=== PATIENT | male | born 1970 | race Caucasian/White ===

== ENCOUNTER 2018-06-04 09:31 | Emergency (ER) | payer MEDICARE, MEDICAID ==
[2018-06-04] MEDS ORDERED: NS 0.9% 1000 ML** 1,000 ML IV ONE (09:49)
[2018-06-04] MEDS ORDERED: Ketorolac INJ* 30 MG/ML 1 ML VIAL IV PUSH ONE (09:49)
[2018-06-04 10:31] LABS: ABS Basophils 0.1 10^3/ul (0-0.2); ABS Eosinophils 0.2 10^3/ul (0-0.6); ABS Lymphocytes 2.2 10^3/ul (1.0-4.8); ABS Monocytes 1.2 10^3/ul (0-0.8); ABS Neutrophils 8.9 10^3/ul (1.5-7.7); ABS Nucleated RBC 0 10^3/ul; Eosinophil % 1.9 %; Hematocrit 45 % (36-46); Lymphocyte % 17.7 %; Mean Corpuscular HGB Conc 33 g/dL (31-36); Mean Corpuscular Hemoglobin 30 pg (27-31); Mean Corpuscular Volume 89 fL (80-94); Mean Platelet Volume 8.7 fL (7.4-10.4); Nucleated Red Blood Cells % 0; Platelet Count 232 10^3/uL (150-450); Red Blood Count 5.04 10^6 /uL (4.18-5.48); Red Cell Distribution Width 14 % (10.5-15); White Blood Count 12.6 10^3/uL (3.5-10.8)
[2018-06-04 10:34] LABS: INR 0.85 (0.77-1.02)
[2018-06-04 10:52] LABS: Albumin 4.1 g/dL (3.2-5.2); Albumin/Globulin Ratio 1.7 (1-3); BUN/Creatinine Ratio 11.8 (8-20); C Reactive Protein 8.52 mg/L (<8.01); Calcium 8.7 mg/dL (8.6-10.3); EGFR African American 131.4 (>60); EGFR Non-African American 108.6 (>60); Globulin 2.4 g/dL (2-4); Magnesium 1.8 mg/dL (1.9-2.7); Potassium 4.3 mmol/L (3.5-5.0); Total Bilirubin 0.2 mg/dL (0.2-1.0); Total Protein 6.5 g/dL (6.4-8.9)
[2018-06-04 11:11] LABS: Urine Appearance Clear; Urine Bacteria Absent (Absent); Urine Bilirubin Negative (Negative); Urine Blood 1+ (Negative); Urine Color Yellow; Urine Glucose Negative (Negative); Urine Ketones Trace (Negative); Urine Nitrite Negative (Negative); Urine Protein Negative (Negative); Urine Red Blood Cell 1+(3-5/hpf) (Absent); Urine Specific Gravity 1.016 (1.010-1.030); Urine Urobilinogen Negative (Negative); Urine White Blood Cell 1+(6-10/hpf) (Absent)
[2018-06-04 12:28] VITALS: BP 146/77
--- NOTE | 2018-06-04 12:41 | ED ---
Abdominal Pain/Male - HPI Summary HPI Summary: Patient's a 48-year-old male presenting to the ED with left-sided flank pain radiating into the left groin. Symptoms have been present for approximately 2 days. He also endorses a history of a left inguinal hernia with repair back in 2004 which she states this feels similar. Also a history of kidney infection many years ago. He denies any urinary symptoms, gross hematuria. He does endorse some bright red blood per rectum with bowel movements, however has been worked up for this at [place] and has been diagnosed with polyps and hemorrhoids. He denies any weakness, fatigue, nausea, vomiting, diarrhea, constipation. He is able to eat and drink okay. He denies any abdominal pain. Denies any CP or SOB. He has not taken any medication at home for relief. Patient is a heavy smoker and drinks alcohol. - History of Current Complaint Chief Complaint: EDFlankPain Stated Complaint: SEVERE PAIN IN LEFT SIDE/FLANK AREA PER PT Time Seen by Provider: 06/04/18 09:48 Hx Obtained From: Patient Onset/Duration: Sudden Onset Timing: Constant Severity Initially: Moderate Severity Currently: Moderate Pain Intensity: 4 Pain Scale Used: 0-10 Numeric Location: Flank Radiates: Yes Radiates to: Inguinal Character: Cramping Aggravating Factor(s): Nothing Alleviating Factor(s): Nothing Associated Signs And Symptoms: Positive: Negative - Risk Factors Testicular Torsion: Negative Cardiac Risk Factors: Negative - Allergies/Home Medications Allergies/Adverse Reactions: Allergies Allergy/AdvReac Type Severity Reaction Status Date / Time BEES Allergy Severe Swelling Uncoded 06/04/18 09:38 PMH/Surg Hx/FS Hx/Imm Hx Previously Healthy: Yes Endocrine/Hematology History: Denies: Hx Anticoagulant Therapy, Hx Diabetes, Hx Thyroid Disease Cardiovascular History: Reports: Hx Coronary Artery Disease - POSSIBLE, Other Cardiovascular Problems/Disorders - NEG ECHO A FEW YEARS BACK Denies: Hx Congestive Heart Failure, Hx Deep Vein Thrombosis, Hx Hypertension , Hx Myocardial Infarction, Hx Pacemaker/ICD Respiratory History: Denies: Hx Asthma - as a child, Hx Chronic Obstructive Pulmonary Disease ( COPD), Hx Lung Cancer, Hx Pneumonia, Hx Pulmonary Embolism, Other Respiratory Problems/Disorders GI History: Reports: Other GI Disorders - DIVERTICULITIS Denies: Hx Gall Bladder Disease, Hx Gastrointestinal Bleed, Hx Ulcer, Hx Urosepsis History: Reports: Hx Kidney Stones - 2013, Other Problems/Disorders - ENLARGED PROSTATE Denies: Hx Renal Disease Musculoskeletal History: Reports: Hx Arthritis - NECK, Hx Tendonitis - NECK AND SHOULDER, Other Musculoskeletal History - FIBROMYALGIA Denies: Hx Scoliosis Sensory History: Reports: Hx Contacts or Glasses - RADING Denies: Hx Hearing Aid Opthamlomology History: Reports: Hx Contacts or Glasses - RADING Neurological History: Reports: Hx Migraine Denies: Hx Dementia, Hx Headaches, Hx Seizures, Hx Transient Ischemic Attacks (TIA) Psychiatric History: Denies: Hx Anxiety, Hx Depression, Hx Panic Disorder, Hx Schizophrenia, Hx Bipolar Disorder - Cancer History Cancer Type, Location and Year: ELEVATED PSA - Surgical History Surgery Procedure, Year, and Place: 2004 INGUINAL HERNIA. 2006 L5-S1 LAMINECTOMY SURGERY. TONSILS. 04/2015 CSP C4-C5 - FUSIONS Hx Anesthesia Reactions: No - Immunization History Hx Pertussis Vaccination: No Immunizations Up to Date: Yes Infectious Disease History: No Infectious Disease History: Denies: Hx Hepatitis, Hx Human Immunodeficiency Virus (HIV), Traveled Outside the [place] in Last 30 Days - Family History Known Family History: Positive: Hypertension Negative: Cardiac Disease, Diabetes - Social History Occupation: Employed Full-time Lives: With Family Alcohol Use: None Hx Substance Use: Yes Substance Use Type: Reports: Marijuana Hx Tobacco Use: Yes Smoking Status (MU): Heavy Every Day Tobacco Smoker Type: Cigarettes Amount Used/How Often: 2 PKS/DAY Have You Smoked in the Last Year: Yes Review of Systems Constitutional: Negative Negative: Fever, Chills, Fatigue, Skin Diaphoresis Negative: Palpitations, Chest Pain Negative: Shortness Of Breath, Cough Negative: Abdominal Pain, Nausea Genitourinary: Negative Positive: no symptoms reported, see HPI, flank pain. Negative: dysuria, frequency, hematuria, incontinence, pain Negative: Arthralgia, Myalgia Skin: Negative All Other Systems Reviewed And Are Negative: Yes Physical Exam Triage Information Reviewed: Yes Vital Signs On Initial Exam: Initial Vitals Temp Pulse Resp BP Pulse Ox 98.7 F 84 20 115/66 100 06/04/18 09:34 06/04/18 09:34 06/04/18 09:34 06/04/18 09:34 06/04/18 09:34 Vital Signs Reviewed: Yes Appearance: Positive: Well-Appearing, Well-Nourished Skin: Positive: Warm, Skin Color Reflects Adequate Perfusion Head/Face: Positive: Normal Head/Face Inspection Eyes: Positive: EOMI, GEOVANNA, Conjunctiva Clear Neck: Positive: Supple, No Lymphadenopathy Respiratory/Lung Sounds: Positive: Clear to Auscultation, Breath Sounds Present Abdomen Description: Positive: Nontender, Soft, CVA Tenderness (L), Other: - no evidence of inguinal hernia. Negative: CVA Tenderness (R), McBurney's Point Tenderness Bowel Sounds: Positive: Present Musculoskeletal: Positive: Normal, Strength/ROM Intact Neurological: Positive: Sensory/Motor Intact, Alert, Oriented to Person Place, Time Psychiatric: Positive: Normal, Affect/Mood Appropriate AVPU Assessment: Alert Diagnostics - Vital Signs Vital Signs Temp Pulse Resp BP Pulse Ox 06/04/18 12:27 98.1 F 70 16 146/77 99 06/04/18 11:01 70 98 06/04/18 10:59 71 102/68 99 06/04/18 10:11 76 100 06/04/18 09:43 79 128/91 99 06/04/18 09:42 83 99 06/04/18 09:34 98.7 F 84 20 115/66 100 - Laboratory Lab Results: Lab Results 06/04/18 06/04/18 06/04/18 Range/Units 10:13 10:16 10:16 WBC 12.6 H (3.5-10.8) 10^3/uL RBC 5.04 (4.18-5.48) 10^6 /uL Hgb 15.0 (14.0-18.0) g/dL Hct 45 (36-46) % MCV 89 (80-94) fL MCH 30 (27-31) pg MCHC 33 (31-36) g/dL RDW 14 (10.5-15) % Plt Count 232 (150-450) 10^3/uL MPV 8.7 (7.4-10.4) fL Neut % (Auto) 70.0 % Lymph % (Auto) 17.7 % Sanders % (Auto) 9.9 % Eos % (Auto) 1.9 % Baso % (Auto) 0.5 % Absolute Neuts (auto) 8.9 H (1.5-7.7) 10^3/ul Absolute Lymphs (auto) 2.2 (1.0-4.8) 10^3/ul Absolute Monos (auto) 1.2 H (0-0.8) 10^3/ul Absolute Eos (auto) 0.2 (0-0.6) 10^3/ul Absolute Basos (auto) 0.1 (0-0.2) 10^3/ul Absolute Nucleated RBC 0 10^3/ul Nucleated RBC % 0 INR (Anticoag Therapy) 0.85 (0.77-1.02) Sodium (135-145) mmol/L Potassium (3.5-5.0) mmol/L Chloride (101-111) mmol/L Carbon Dioxide (22-32) mmol/L Anion Gap (2-11) mmol/L BUN (6-24) mg/dL Creatinine (0.67-1.17) mg/dL Est GFR ( Amer) (>60) Est GFR (Non-Af Amer) (>60) BUN/Creatinine Ratio (8-20) Glucose (70-100) mg/dL Lactic Acid (0.5-2.0) mmol/L Calcium (8.6-10.3) mg/dL Magnesium (1.9-2.7) mg/dL Total Bilirubin (0.2-1.0) mg/dL AST (13-39) U/L ALT (7-52) U/L Alkaline Phosphatase (34-104) U/L C-Reactive Protein (<8.01) mg/L Total Protein (6.4-8.9) g/dL Albumin (3.2-5.2) g/dL Globulin (2-4) g/dL Albumin/Globulin Ratio (1-3) Lipase (11.0-82.0) U/L Urine Color Yellow Urine Appearance Clear Urine pH 5.0 (5-9) Ur Specific [place] 1.016 (1.010-1.030) Urine Protein Negative (Negative) Urine Ketones Trace A (Negative) Urine Blood 1+ A (Negative) Urine Nitrate Negative (Negative) Urine Bilirubin Negative (Negative) Urine Urobilinogen Negative (Negative) Ur Leukocyte Esterase 1+ A (Negative) Urine WBC (Auto) 1+(6-10/hpf) A (Absent) Urine RBC (Auto) 1+(3-5/hpf) A (Absent) Urine Bacteria Absent (Absent) Urine Glucose Negative (Negative) 06/04/18 06/04/18 Range/Units 10:16 10:16 WBC (3.5-10.8) 10^3/uL RBC (4.18-5.48) 10^6 /uL Hgb (14.0-18.0) g/dL Hct (36-46) % MCV (80-94) fL MCH (27-31) pg MCHC (31-36) g/dL RDW (10.5-15) % Plt Count (150-450) 10^3/uL MPV (7.4-10.4) fL Neut % (Auto) % Lymph % (Auto) % Sanders % (Auto) % Eos % (Auto) % Baso % (Auto) % Absolute Neuts (auto) (1.5-7.7) 10^3/ul Absolute Lymphs (auto) (1.0-4.8) 10^3/ul Absolute Monos (auto) (0-0.8) 10^3/ul Absolute Eos (auto) (0-0.6) 10^3/ul Absolute Basos (auto) (0-0.2) 10^3/ul Absolute Nucleated RBC 10^3/ul Nucleated RBC % INR (Anticoag Therapy) (0.77-1.02) Sodium 140 (135-145) mmol/L Potassium 4.3 (3.5-5.0) mmol/L Chloride 106 (101-111) mmol/L Carbon Dioxide 29 (22-32) mmol/L Anion Gap 5 (2-11) mmol/L BUN 9 (6-24) mg/dL Creatinine 0.76 (0.67-1.17) mg/dL Est GFR ( Amer) 131.4 (>60) Est GFR (Non-Af Amer) 108.6 (>60) BUN/Creatinine Ratio 11.8 (8-20) Glucose 100 (70-100) mg/dL Lactic Acid 0.9 (0.5-2.0) mmol/L Calcium 8.7 (8.6-10.3) mg/dL Magnesium 1.8 L (1.9-2.7) mg/dL Total Bilirubin 0.20 (0.2-1.0) mg/dL AST 16 (13-39) U/L ALT 12 (7-52) U/L Alkaline Phosphatase 85 (34-104) U/L C-Reactive Protein 8.52 H (<8.01) mg/L Total Protein 6.5 (6.4-8.9) g/dL Albumin 4.1 (3.2-5.2) g/dL Globulin 2.4 (2-4) g/dL Albumin/Globulin Ratio 1.7 (1-3) Lipase 10 L (11.0-82.0) U/L Urine Color Urine Appearance Urine pH (5-9) Ur Specific [place] (1.010-1.030) Urine Protein (Negative) Urine Ketones (Negative) Urine Blood (Negative) Urine Nitrate (Negative) Urine Bilirubin (Negative) Urine Urobilinogen (Negative) Ur Leukocyte Esterase (Negative) Urine WBC (Auto) (Absent) Urine RBC (Auto) (Absent) Urine Bacteria (Absent) Urine Glucose (Negative) Result Diagrams: 06/04/18 10:16 06/04/18 10:16 Lab Statement: Any lab studies that have been ordered have been reviewed, and results considered in the medical decision making process. Abdominal Pain Male Course/Dx - Course Course Of Treatment: During this patient's course of treatment, he is evaluated for left-sided flank pain. Patient is given Toradol and 1 L normal saline. Urine obtained which shows 1+ leuks, 1+ to CBC and 1+ RBC. CT abdomen and pelvis obtained which shows a small left-sided inguinal hernia, however no other acute pathologies including kidney stones or hydronephrosis. Patient feels improved after fluids and Toradol. He will be prescribed Bactrim 5 days for his possible UTI and we will await cultures. He is also given follow-ups to a urologist and surgery. He is okay for discharge at this time and continues to eat and drink okay. - Diagnoses Differential Diagnosis/HQI/PQRI: Renal Colic, Ureteral Stone, Urinary Tract Infection Provider Diagnoses: Left flank pain Discharge - Sign-Out/Discharge Documenting (check all that apply): Patient Departure Patient Received Moderate/Deep Sedation with Procedure: No - Discharge Plan Condition: Stable Disposition: HOME Prescriptions: Ketorolac TAB * [Toradol TAB *] 10 mg PO Q6H #16 tab Sulfamethox/Trimethoprim DS* [Bactrim DS 800/160 TAB*] 1 tab PO BID #10 tab Patient Education Materials: Urinary Tract Infection in Men (ED) Referrals: Abhinav Iverson MD [Medical Doctor] - Jitendra Loyola MD [Primary Care Provider] - Hay Le MD [Medical Doctor] - Additional Instructions: Please follow-up with your urologist, I have also given you a referral for our urologist Please also follow up with your PCP I discussed with you about your small left-sided inguinal hernia, you may follow up with surgery if this begins to bother you Bactrim twice daily 5 days Take Toradol 4 times daily 4 days for any pain Do not take any ibuprofen or other NSAIDs while taking this medication - Billing Disposition and Condition Condition: STABLE Disposition: Home
== END 2018-06-04 12:27 | disposition home or self-care (01) ==
LOC: ED 09:31
DX: R10.32 Left lower quadrant pain (principal); F17.210 Nicotine dependence, cigarettes, uncomplicated; K57.92 Diverticulitis of intestine, part unspecified, without perforation or abscess without bleeding; M79.7 Fibromyalgia
CPT/HCPCS: 36415; 74176; 80053; 81003; 81015; 83605; 83690; 83735; 85025; 85610; 86140; 87086; 96361; 96374; 99283; J1885

== ENCOUNTER 2018-06-14 20:21 | Emergency (ER) | payer OTHER, MEDICARE ==
[2018-06-14] MEDS ORDERED: oxyCODONE/Acetamin 5/325 MG* TAB PO ONE ×2 (20:59→21:00)
[2018-06-14] MEDS ORDERED: predniSONE TAB* 20 MG PO ONE (20:59)
[2018-06-14] MEDS ORDERED: Naproxen TAB* 250 MG PO ONE (20:59)
[2018-06-14] MEDS ORDERED: Lidocaine Patch REMOVE* 1 NOTE MISC SCH (21:00)
[2018-06-14] MEDS ORDERED: Lidocaine PATCH 5%* 1 PATCH TRANSDERM SCH (21:00)
--- NOTE | 2018-06-14 21:06 | ED ---
Back Pain - HPI Summary HPI Summary: This patient is a 48 year old M presenting to [facility] accompanied by a woman with a chief complaint of worsening chronic lower back pain radiating down his left leg since 2 weeks ago. The patient rates the pain 10/10 in severity. Symptoms aggravated by movement. Symptoms not alleviated by Hydrocodone. Patient reports pain with ambulation of left leg, difficulty sleeping, constipation, and lower abd pain. Patient denies fever. The patient came to [facility] about 2 weeks ago, where he was diagnosed with a UTI and given Bactrim and Hydrocodone. The patient was able to ambulate from his car to the ED. He has an appointment with Dr. Jaimes next week, who he hasnt seen since 2017. The patient says he cannot tell if there is numbness or tingling in the groin because of the back pain. He denies using IV drugs. The patient uses laxatives to try to help with the constipation. The patient has been taking 800mg Ibuprofen for the pain, which has not alleviated his symptoms. PMHX Hernia operation, back surgery. No PMHx diabetes. SHX tobacco use. RX Hydrocodone. - History of Current Complaint Chief Complaint: EDBackInjuryPain Stated Complaint: BACK AND LEG PAIN PER PT Time Seen by Provider: 06/14/18 20:46 Hx Obtained From: Patient Onset/Duration: Gradual Onset, Lasting Weeks, Still Present Timing: Constant Back Pain Location: Radiates To - left leg Severity Currently: Severe Pain Intensity: 10 Pain Scale Used: 0-10 Numeric Character: Sharp Aggravating Symptom(s): Movement, Walking Associated Signs And Symptoms: Positive: Pain with Weight Bearing - Allergies/Home Medications Allergies/Adverse Reactions: Allergies Allergy/AdvReac Type Severity Reaction Status Date / Time BEES Allergy Severe Swelling Uncoded 06/04/18 09:38 Home Medications: Home Medications Hydrocodone/Acetaminophen [Hydrocodone-Acetamin 5-325 mg] 1 tab PO Q4HR PRN 07/28 [History Confirmed 06/14/18] PMH/Surg Hx/FS Hx/Imm Hx Endocrine/Hematology History: Denies: Hx Anticoagulant Therapy, Hx Diabetes, Hx Thyroid Disease Cardiovascular History: Reports: Hx Coronary Artery Disease - POSSIBLE, Other Cardiovascular Problems/Disorders - NEG ECHO A FEW YEARS BACK Denies: Hx Congestive Heart Failure, Hx Deep Vein Thrombosis, Hx Hypertension , Hx Myocardial Infarction, Hx Pacemaker/ICD Respiratory History: Denies: Hx Asthma - as a child, Hx Chronic Obstructive Pulmonary Disease ( COPD), Hx Lung Cancer, Hx Pneumonia, Hx Pulmonary Embolism, Other Respiratory Problems/Disorders GI History: Reports: Other GI Disorders - DIVERTICULITIS Denies: Hx Gall Bladder Disease, Hx Gastrointestinal Bleed, Hx Ulcer, Hx Urosepsis History: Reports: Hx Kidney Stones - 2014, Other Problems/Disorders - ENLARGED PROSTATE Denies: Hx Renal Disease Musculoskeletal History: Reports: Hx Arthritis - NECK, Hx Tendonitis - NECK AND SHOULDER, Other Musculoskeletal History - FIBROMYALGIA Denies: Hx Scoliosis Sensory History: Reports: Hx Contacts or Glasses - RADING Opthamlomology History: Reports: Hx Contacts or Glasses - RADING Neurological History: Reports: Hx Migraine Denies: Hx Dementia, Hx Headaches, Hx Seizures, Hx Transient Ischemic Attacks (TIA) Psychiatric History: Denies: Hx Anxiety, Hx Depression, Hx Panic Disorder, Hx Schizophrenia, Hx Bipolar Disorder - Cancer History Cancer Type, Location and Year: ELEVATED PSA - Surgical History Surgery Procedure, Year, and Place: 2004 INGUINAL HERNIA. 2005 L5-S1 LAMINECTOMY SURGERY. TONSILS. 04/2015 CSP C4-C5 - FUSIONS Hx Anesthesia Reactions: No Infectious Disease History: No Infectious Disease History: Denies: Hx Hepatitis, Hx Human Immunodeficiency Virus (HIV), Traveled Outside the [place] in Last 30 Days - Family History Known Family History: Positive: Hypertension Negative: Cardiac Disease, Diabetes - Social History Alcohol Use: None Hx Substance Use: Yes Substance Use Type: Reports: Marijuana Hx Tobacco Use: Yes Smoking Status (MU): Heavy Every Day Tobacco Smoker Type: Cigarettes Amount Used/How Often: 2 PKS/DAY Have You Smoked in the Last Year: Yes Review of Systems Negative: Fever Positive: Abdominal Pain - lower, near groin, Other - constipation Positive: Myalgia - lower back, left leg Neurological: Other - difficulty sleeping All Other Systems Reviewed And Are Negative: Yes Physical Exam - Summary Physical Exam Summary: Constitutional: Well-developed, Well-nourished, Alert. Skin: Warm, Dry HENT: Normocephalic; Atraumatic Eyes: Conjunctiva normal Neck: Musculoskeletal ROM normal neck. Cardio: Rhythm regular, rate normal, Heart sounds normal; Intact distal pulses; The pedal pulses are 2+ and symmetric. Radial pulses are 2+ and symmetric. Pulmonary/Chest wall: Effort normal. Abd: Soft. Musculoskeletal: Straight leg raise is positive on the left. ROM limited by pain. No bony tenderness. Neuro: Alert, Oriented x3 Psych: Mood and affect Normal Triage Information Reviewed: Yes Vital Signs On Initial Exam: Initial Vitals Temp Pulse Resp BP Pulse Ox 98.4 F 111 20 136/86 99 06/14/18 20:22 06/14/18 20:22 06/14/18 20:22 06/14/18 20:22 06/14/18 20:22 Vital Signs Reviewed: Yes Diagnostics - Vital Signs Vital Signs Temp Pulse Resp BP Pulse Ox 06/14/18 20:22 98.4 F 111 20 136/86 99 - Laboratory Lab Statement: Any lab studies that have been ordered have been reviewed, and results considered in the medical decision making process. Back Pain Course/Dx - Course Course Of Treatment: This patient is a 48 year old M presenting to [facility] accompanied by a woman with a chief complaint of worsening chronic lower back pain radiating down his left leg since 2 weeks ago. The patient rates the pain 10/10 in severity. Symptoms aggravated by movement. Symptoms not alleviated by Hydrocodone. Patient reports pain with ambulation of left leg, difficulty sleeping, constipation, and lower abd pain. Patient denies fever. In the ED course the patient was given Lidocaine patch, Naproxen, Oxycodone, and Prednisone. No bowel or bladder dysfunction and no saddle anesthesia. I do not suspect cauda equine syndrome. All of his symptoms are indicative of left sciatica. Patient will be discharged with prescription for Lidocaine, Naproxen , Oxycodone, and Prednisone and follow up from Dr. Jaimes. The patient is agreeable with this plan. - Diagnoses Provider Diagnoses: Sciatica Discharge - Sign-Out/Discharge Documenting (check all that apply): Patient Departure - discharge Patient Received Moderate/Deep Sedation with Procedure: No - Discharge Plan Condition: Stable Disposition: HOME Prescriptions: Lidocaine PATCH 5%* [Lidoderm 5% Patch*] 1 patch TRANSDERM DAILY #14 patch Naproxen TAB* [Naprosyn 250 mg TAB*] 500 mg PO Q8H PRN #30 tab PRN Reason: Pain - Moderate To Severe oxyCODONE/Acetamin 5/325 MG* [Percocet 5/325 TAB*] 2 tab PO Q6H PRN #20 tab MDD 8 PRN Reason: Pain Scale 6-10 predniSONE TAB* [Deltasone TAB*] 50 mg PO DAILY #4 tab Patient Education Materials: Sciatica (ED) Referrals: Byron Jaimes MD [Medical Doctor] - 3 Days Additional Instructions: Please follow up with Dr. Jaimes on Sunday, as previously scheduled. - Attestation Statements Document Initiated by Scribe: Yes Documenting Scribe: Vinayak Giron Provider For Whom Scribe is Documenting (Include Credential): Chong Shah MD Scribe Attestation: IVinayak, scribed for Chong Shah MD on 06/14/18 at 2128. Status of Scribe Document: Ready
[2018-06-14] MEDS ORDERED: Lidocaine PATCH 5%* 1 PATCH ONE (21:07)
[2018-06-14 22:01] VITALS: BP 118/86
[2018-06-14] MEDS ORDERED: Lidocaine Patch REMOVE* 1 NOTE MISC PATCH OFF SCH (23:32)
== END 2018-06-14 21:59 | disposition home or self-care (01) ==
LOC: ED 20:21
DX: M54.32 Sciatica, left side (principal); F17.210 Nicotine dependence, cigarettes, uncomplicated; I25.10 Atherosclerotic heart disease of native coronary artery without angina pectoris; Z87.442 Personal history of urinary calculi; M79.7 Fibromyalgia
CPT/HCPCS: 99282; A9270-GY; J7512

== ENCOUNTER 2019-06-20 11:05 | Emergency (ER) | payer MEDICARE, MEDICAID ==
--- NOTE | 2019-06-20 11:17 | ED ---
GI/ HPI - HPI Summary HPI Summary: 49 y/o M with hx rectal bleeding, hemorrhoids, polyps, diverticulitis, inguinal hernia presenting to [facility] c/o intermittent rectal bleeding for 2 weeks. Lasted for 3 days last week. Lasted for 4 days this week. No rectal bleeding today. Patient reports seeing blood clots in his stools. He reports 4/10 left sided abdominal pain wrapping around to the left side of his back. No dizziness or light headedness. Was seen by his primary care provider today and given probiotic and another medication. He is followed by Dr. Gilman, GI at [place]. Last colonoscopy 3 years ago. He hasn't been able to have colonoscopy for this d /t the pandemic. Symptoms aggravated and alleviated by nothing. Medications reviewed. Not on anticoagulants. Allergies reviewed. Current smoker. - History of Current Complaint Chief Complaint: EDGIBleed Time Seen by Provider: 06/20/19 11:14 Stated Complaint: RECTAL BLEEDING PER PT Hx Obtained From: Patient Onset/Duration: Started Weeks Ago - 2, Still Present Timing: Intermittent Current Severity: Moderate Pain Intensity: 4 Aggravating Factor(s): Nothing Alleviating Factor(s): Nothing - Additional Pertinent History Primary Care Physician: [id number] - Allergy/Home Medications Allergies/Adverse Reactions: Allergies Allergy/AdvReac Type Severity Reaction Status Date / Time bee venom protein (honey bee) Allergy Severe Swelling Verified 06/14/18 23:33 Home Medications: Home Medications Cyclobenzaprine TAB* [Flexeril TAB*] 10 mg PO TID 03/25/12 [History Confirmed ] Pregabalin 25 mg CAP (*) [Lyrica CAP(*)] 150 mg PO TID 03/25/12 [History Confirmed 06/20/19] Acetaminophen TAB* [Tylenol TAB*] 325 mg PO Q4H PRN 06/20/19 [History Confirmed 06/20/19] Ascorbic Acid TAB* [Vitamin C TAB*] 500 mg PO DAILY 06/20/19 [History Confirmed 06/20/19] Meloxicam(NF) [Mobic(NF)] 15 mg PO DAILY 06/20/19 [History Confirmed 06/20/19] Multivitamins/Minerals TAB* [Theragran/minerals TAB*] 1 tab PO DAILY 06/20/19 [ History Confirmed 06/20/19] Pyridoxine TAB* [Vitamin B6 TAB*] 50 mg PO DAILY 06/20/19 [History Confirmed 12/29] Vitamin E CAP* 200 unit PO DAILY 06/20/19 [History Confirmed 06/20/19] PMH/Surg Hx/FS Hx/Imm Hx Endocrine/Hematology History: Denies: Hx Anticoagulant Therapy, Hx Diabetes, Hx Thyroid Disease Cardiovascular History: Reports: Hx Coronary Artery Disease - POSSIBLE, Other Cardiovascular Problems/Disorders - NEG ECHO A FEW YEARS BACK Denies: Hx Congestive Heart Failure, Hx Deep Vein Thrombosis, Hx Hypertension , Hx Myocardial Infarction, Hx Pacemaker/ICD Respiratory History: Denies: Hx Asthma - as a child, Hx Chronic Obstructive Pulmonary Disease ( COPD), Hx Pneumonia, Hx Pulmonary Embolism, Other Respiratory Problems/Disorders GI History: Reports: Other GI Disorders - DIVERTICULITIS Denies: Hx Gall Bladder Disease, Hx Ulcer History: Reports: Hx Kidney Stones - 2013, Other Problems/Disorders - ENLARGED PROSTATE Denies: Hx Renal Disease - DECREASED FROM UTI BUT OKAY AFTER ANTIBIOTICS NOW Musculoskeletal History: Reports: Hx Arthritis - NECK, Hx Tendonitis - NECK AND SHOULDER, Other Musculoskeletal History - FIBROMYALGIA Sensory History: Reports: Hx Contacts or Glasses - RADING Opthamlomology History: Reports: Hx Contacts or Glasses - RADING Neurological History: Reports: Hx Migraine Denies: Hx Headaches, Hx Seizures, Hx Transient Ischemic Attacks (TIA) Psychiatric History: Denies: Hx Anxiety, Hx Depression, Hx Bipolar Disorder - Cancer History Cancer Type, Location and Year: ELEVATED PSA - Surgical History Surgery Procedure, Year, and Place: 2004 INGUINAL HERNIA. 2005 L5-S1 LAMINECTOMY SURGERY. TONSILS. 04/2015 CSP C4-C5 - FUSIONS Hx Anesthesia Reactions: No Infectious Disease History: No Infectious Disease History: Denies: Hx Hepatitis, Hx Human Immunodeficiency Virus (HIV), Traveled Outside the [place] in Last 30 Days - Family History Known Family History: Positive: Hypertension Negative: Cardiac Disease, Diabetes - Social History Alcohol Use: None Hx Substance Use: Yes Substance Use Type: Reports: Marijuana Hx Tobacco Use: Yes Smoking Status (MU): Heavy Every Day Tobacco Smoker Type: Cigarettes Amount Used/How Often: 2 PKS/DAY Have You Smoked in the Last Year: Yes Review of Systems Positive: Abdominal Pain, Other - rectal bleeding, bloot clots in stools Neurological/Mental Status: Negative - dizziness, light headedness All Other Systems Reviewed And Are Negative: Yes Physical Exam - Summary Physical Exam Summary: Constitutional: Well-developed, Well-nourished, Alert. (-) Distressed Skin: Warm, Dry HENT: Normocephalic; Atraumatic Eyes: Conjunctiva normal Neck: Musculoskeletal ROM normal neck. (-) JVD, (-) Stridor, (-) Nuchal rigidity Cardio: Rhythm regular, rate normal, Heart sounds normal; Intact distal pulses; Radial pulses are 2+ and symmetric. (-) Murmur Pulmonary/Chest wall: Effort normal. (-) Respiratory distress, (-) Wheezes, (-) Rales Abd: Soft, LLQ tenderness, (-) Distension, (-) Guarding, (-) Rebound Musculoskeletal: (-) Edema Lymph: (-) Cervical adenopathy Neuro: Alert, Oriented x3 Psych: Mood and affect Normal Triage Information Reviewed: Yes Vital Signs On Initial Exam: Initial Vitals Temp Pulse Resp BP Pulse Ox 97.0 F 70 18 153/90 99 06/20/19 11:11 06/20/19 11:11 06/20/19 11:11 06/20/19 11:11 06/20/19 11:11 Vital Signs Reviewed: Yes Procedures - Sedation Patient Received Moderate/Deep Sedation with Procedure: No Diagnostics - Vital Signs Vital Signs Temp Pulse Resp BP Pulse Ox 06/20/19 11:11 97.0 F 70 18 153/90 99 - Laboratory Result Diagrams: 06/20/19 11:30 06/20/19 11:30 Lab Statement: Any lab studies that have been ordered have been reviewed, and results considered in the medical decision making process. - CT ABD/PEL CT Interpretation Completed By: Radiologist - IMPRESSION: No abnormal masses or fluid collections are noted. No definite evidence of diverticulitis is noted. No definite evidence of bowel obstruction is noted. ED physician has reviewed this imaging report. GIGU Course/Dx - Course Course Of Treatment: 49 y/o male p/w rectal bleeding. Exam w mild llq tenderness. No external hemorrhoids. CT w/o abnormality. Hb stable. Given GI follow up - Diagnoses Provider Diagnoses: Rectal bleeding, Abdominal pain Discharge ED - Sign-Out/Discharge Documenting (check all that apply): Patient Departure - Discharge Plan Condition: Stable Disposition: HOME Patient Education Materials: Rectal Bleeding (ED), Abdominal Pain (ED) Referrals: Jitendra Loyola MD [Primary Care Provider] - Hansa Gilman MD [Medical Doctor] - Additional Instructions: You were seen in the emergency department for abdominal pain and rectal bleeding. Your CT scan did not show a cause for this pain or bleeding. Please follow up w GI. If any studies were not completed at the time of discharge you will be called with the relevant results. Please follow up with your primary care doctor in next 2-3 days and return to emergency department for worsening pain, increased bleeding, fevers or concerning symptoms. It was a pleasure taking care of you today. - Billing Disposition and Condition Condition: STABLE Disposition: Home - Attestation Statements Document Initiated by So: Yes Documenting Scribe: Amparo Liu Provider For Whom So is Documenting (Include Credential): Johan Dc MD Scribe Attestation: Amparo Doe, scribed for Johan Dc MD on 06/20/19 at 1430. Scribe Documentation Reviewed: Yes Provider Attestation: The documentation as recorded by the Amparo lugo accurately reflects the service I personally performed and the decisions made by me, Johan Dc MD Status of Scribe Document: Viewed
[2019-06-20 11:39] LABS: ABS Basophils 0.1 10^3/ul (0-0.2); ABS Eosinophils 0.2 10^3/ul (0-0.6); ABS Lymphocytes 2.6 10^3/ul (1.0-4.8); ABS Monocytes 0.9 10^3/ul (0-0.8); ABS Neutrophils 7.2 10^3/ul (1.5-7.7); Eosinophil % 2.1 %; Hematocrit 45 % (42-52); Hemoglobin 15.4 g/dL (14.0-18.0); Lymphocyte % 23.9 %; Mean Corpuscular HGB Conc 35 g/dL (31-36); Mean Corpuscular Hemoglobin 31 pg (27-31); Mean Corpuscular Volume 88 fL (80-94); Mean Platelet Volume 8.4 fL (7.4-10.4); Nucleated Red Blood Cells % 0.1; Platelet Count 262 10^3/uL (150-450); Red Blood Count 5.04 10^6 /uL (4.18-5.48); Red Cell Distribution Width 14 % (10-15)
[2019-06-20 11:56] LABS: Albumin 4.4 g/dL (3.2-5.2); Albumin/Globulin Ratio 1.6 (1-3); BUN/Creatinine Ratio 19.8 (8-20); Calcium 9.5 mg/dL (8.6-10.3); EGFR African American 113.4 (>60); EGFR Non-African American 93.8 (>60); Globulin 2.8 g/dL (2-4); Potassium 4.3 mmol/L (3.5-5.0); Total Bilirubin 0.3 mg/dL (0.2-1.0); Total Protein 7.2 g/dL (6.4-8.9)
--- OUTSIDE RECORDS SUMMARY | 2019-06-20 11:57 | XMS REPORT | Clinical Summary ---
:1970 Author Organization [facility], Address [address] [place] [address] Care Team Providers Name Role Phone Pa WHEELER, Dr Almaraz Unavailable Allergies No Known Drug Allergies Assessment and Plan Assessment and Plan Date of Encounter: 2019-06-05 Plan: PLAN: Continue pregabalin and cyclobenzaprine. I will put in a request for prior authorization. He is to continue with a 10 lb lifting restriction and avoiding repet itive bending, twisting, and kneeling. He has a permanent 50% disability from WC and is totally disabled for SS. 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 I will f/u with him 3 months to see how he is doing with medications. The above services were appropriate to provide in a Telemedicine setting.. Rufina Winn MS, MD. cc: Dr. Loyola. Date of Encounter: 2019-02-26 Plan: PLAN: Continue pregabalin. Try to wean off cyclobenzaprine. He is to continue with a 10 lb lifting restriction and avoiding repetitive bending, twisting, and kneelin g. He has a permanent 50% disability from WC and is totally disabled for SS. 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 I will f/u with him 3 months to see how he is doing with medications. Rufina Winn MS, MD. cc: Dr. Loyola. Date of Encounter: 2018-04-17 Plan: PLAN: Continue current meds. He is to continue with a 10 lb lifting restriction and avoiding repetitive bending, twisting, and kneeling. He has a permanent 50% disab ility from WC and is totally disabled for SS. 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 I will f/u with him in 6 months or sooner if needed.. Rufina Winn MS, MD. cc: Dr. Loyola. Date of Encounter: 2018-04-17 Addendum date 2018-04-17 source: Referral: REFERRALS: DR LOYOLA via Fax Date of Encounter: 2017-10-17 Plan: PLAN: Continue current meds. He is to continue with a 10 lb lifting restriction and avoiding repetitive bending, twisting, and kneeling. I told him to my knowledge he has a permanent 50% disability from but the social security definitions will be different. 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 I recommended he discuss with social director or a business attorney. I will f/u with him in 6 months or sooner if needed. Rufina Winn MS, MD. cc: Dr. Loyola. Date of Encounter: 2017-10-17 Addendum date 2017-10-17 source: Referral: REFERRALS: DR LOYOLA via Fax Date of Encounter: 2017-04-25 Plan: PLAN: Continue current meds. He is to continue with a 10 lb lifting restriction and avoiding repetitive bending, twisting, and kneeling. I will f/u with him in 6 months or sooner if needed. Rufina Winn MS, MD. cc: Dr. Loyola. Date of Encounter: 2017-01-17 Plan: PLAN: Continue lyrica to tid. He is to continue with a 10 lb lifting restriction and avoiding repetitive bending, twisting, and kneeling. f/u with neurosurgery. I will f/u with him in 3 months.. Rufina Winn MS, MD. cc: Dr. Loyola. Date of Encounter: 2017-01-17 Addendum date 2017-01-17 source: Referral: REFERRALS: DR LOYOLA via Fax Date of Encounter: 2016-10-05 Plan: PLAN: Increase lyrica to tid. He is to continue with a 10 lb lifting restriction and avoiding repetitive bending, twisting, and kneeling. I will request MRI of throa cic and lumbar spines despite recent MRI of the L-spine in 07/26. He will call to ask to specifically see Dr. Saleh. f/u also with Dr. Oliva. I offered pain clinic but he plans to just see Dr. Oliva. I will f/u with him in 3 months. REQUEST AUTHORIZATION FOR MRI OF THE THORACIC AND LUMBAR SPINE. Rufina Winn MS, MD. cc: Dr. Loyola. Date of Encounter: 2016-07-17 Addendum date 2016-07-17 source: Doctor: PC - I called again and got answering machine again. Left message to call me. Earlier call was this morning but I did not sign the note until now. Date of Encounter: 2016-07-06 Plan: PLAN: Continue with the same medications. He is to continue with a 10 lb lifting restriction and avoiding repetitive bending, twisting, and kneeling. Request MRI of the lumbar spine after which I will have him seen by neurosurgery. I will f/u with him in 3 months and discuss imaging results with him on the phone. REQUEST AUTHORIZATION FOR MRI OF THE LUMBAR SPINE. Rufina Winn MS, MD. cc: Dr. Loyola. Date of Encounter: 2016-06-12 Plan: PLAN: Continue with the same medications. EMG/NCS of both legs. He is to continue with a 10 lb lifting restriction and avoiding repetitive bending, twisting, and kn eeling. He continues at a permanent moderate level of disability. I will f/u with him in 3 months otherwise.. REQUEST AUTHORIZATION FOR EMG OF BOTH LEGS. Rufina Winn MS, MD. cc: Dr. Loyola Date of Encounter: 2016-06-12 Addendum date 2016-06-12 source: Referral: REFERRALS: DR LOYOLA via Fax Date of Encounter: 2016-02-10 Plan: PLAN: Continue with the same medications. Await EDELMIRA results. If he is not better, then I would like to consider EMG/NCS of both legs. I told him to give me a call if he is not better 2 weeks after EDELMIRA. He is to continue with a 10 lb lifting restriction and avoiding repetitive bending, twisting, and kneeling. He continues at a permanent moderate level of disability. I will f/u with him in 3 months otherwise. Rufina Winn MS, MD. cc: Dr. Loyola, Dr. Oliva Date of Encounter: 2016-02-10 Addendum date 2016-02-10 source: Referral: REFERRALS: DR. LOYOLA via Fax Date of Encounter: 2016-02-10 Addendum date 2016-02-10 source: Referral: REFERRALS: JOSHUA OLIVA via Fax Date of Encounter: 2016-02-10 Addendum date 2016-02-10 source: Referral: REFERRALS: DR. LOYOLA via Fax Date of Encounter: 2016-02-10 Addendum date 2016-02-10 source: Referral: REFERRALS: DR. LOYOLA via Fax Date of Encounter: 2015-11-04 Plan: PLAN: Request MRI L-spine due to worsening sensation on exam. He may need repeat EDELMIRA and will consider f/u with Dr. Cruz also. Continue PT for now. Continue with the same medications. He is to continue with a 10 lb lifting restriction and avoiding repetitive bending, twisting, and kneeling. He continues at a permanent moderate level of disability. I will f/u with him in 3 months.. REQUEST AUTHORIZATION FOR MRI LUMBAR SPINE WITHOUT CONTRAST. Rufina Winn MS, MD. cc: Dr. Loyola. Date of Encounter: 2015-08-04 Plan: PLAN: Continue with the same medications. He is to continue with a 10 lb lifting restriction and avoiding repetitive bending, twisting, and kneeling. He continues at a permanent moderate level of disability. Request 10 visits of PT for maintenance. I will f/u with him in 3 months.. REQUEST AUTHORIZATION FOR 10 VISITS OF MAINTENANCE PHYSICAL THERAPY. Rufina Winn MS, MD. cc: Dr. Loyola. Date of Encounter: 2015-01-28 Plan: PLAN: Continue with the same medications. He is to continue with a 10 lb lifting restriction and avoiding repetitive bending, twisting, and kneeling. He continues at a permanent moderate level of disability. I will f/u with him in 6months.. Rufina Winn MS, MD. cc: Dr. Loyola. Date of Encounter: 2015-01-28 Addendum date 2015-01-28 source: Referral: REFERRALS: DR. LOYOLA via Fax Date of Encounter: 2015-01-28 Addendum date 2015-01-28 source: Referral: REFERRALS: DR. LOYOLA via Fax Date of Encounter: 2014-07-09 Plan: PLAN: Continue with the same medications. He is to continue with a 10 lb lifting restriction and avoiding repetitive bending, twisting, and kneeling. He continues at a permanent moderate level of disability. He was advised quitting smoking would be beneficial for his back. I will f/u with him in 3months. Rufina Winn MS, MD. cc: Dr. Loyola. Date of Encounter: 2014-05-07 Plan: PLAN: Continue with the same medications. He is to continue with a 10 lb lifting restriction and avoiding repetitive bending, twisting, and kneeling. He continues at a permanent moderate level of disability. He will call when he needs refills of cyclobenzaprine or lyrica. I will order a new MRI L-spine. I will f/u with him in 2-3months, but call with the MRI result s. I educated him again on options of retrial PT such as aquatherapy which he has not done in a long time, considering SCS, or surgical consultation. We will discuss more after the MRI. Rufina Winn MS, . cc: Dr. Loyola. MEDICATIONS: Lyrica 150 mg oral capsule Take 1 po bid (start date: 06/20/2012) prescription: not prescribed this visit Cyclobenzaprine Hydrochloride 10 mg oral tablet Take 1 po tid prn. ( start date: 03/09/2014) prescription: qty 90 of 10 mg Take 1 po tid prn. (4 refills) Date of Encounter: 2014-02-03 Plan: PLAN: Continue with the same medications. He is to continue with a 10 lb lifting restriction and avoiding repetitive bending, twisting, and kneeling. He continue s at a permanent moderate level of disability. He will call when he needs refills of cyclobenzaprine or lyrica. I will order a new MRI L-spine. I will f/ u with him in 2-3months, but call with the MRI results. I educated him in options of retrial PT which he has not done in a long time, considering SCS, or surgical consultation. We will discuss more after the MRI. Rufina Winn MS, MD. cc: Dr. Loyola MEDICATIONS: Lyrica 150 mg oral capsule Take 1 po bid (start date: 06/20/2012) prescription: not prescribed this visit Cyclobenzaprine Hydrochloride 10 mg oral tablet prescription: not prescribed this visit Date of Encounter: 2014-02-03 Addendum date 2014-02-03 source: Doctor: REQUEST AUTHORIZATION FOR MRI LUMBAR SPINE DUE TO WORSENING SENSATION. Date of Encounter: 2013-10-13 Plan: PLAN: Continue with the same medications. He is to continue with a 10 lb lifting restriction and avoiding repetitive bending, twisting, and kneeling. He continue s at a permanent moderate level of disability. He will call when he needs refills of cyclobenzaprine or lyrica. He is going to call for a f/u appt with Dr. Oliva. I will f/u with him in 3-4 months. Rufina Winn MS, MD. cc: Dr. Loyola, Dr. Oliva MEDICATIONS: Lyrica 150 mg oral capsule 150 mg Take 1 po bid (start date: 06/20/2012) prescription: not prescribed this visit Cyclobenzaprine Hydrochloride 10 mg oral tablet 10 mg prescription: not prescribed this visit Date of Encounter: 2013-10-13 Addendum date 2013-10-13 source: Doctor: Pt given information on smoking cessation since there is a correlation on low back pain and smoking. Date of Encounter: 2013-06-17 Plan: PLAN: Continue with the same medications. He is to continue with a 10 lb lifting restriction and avoiding repetitive bending, twisting, and kneeling. He continue s at a permanent moderate level of disability. He will call when he needs refills of cyclobenzaprine or lyrica. I will f/u with him in 3-4 months. Rufina Winn MS, MD. cc: Dr. Loyola. MEDICATIONS: Lyrica 150 mg oral capsule 150 mg Take 1 po bid (start date: 06/20/2012) prescription: not prescribed this visit Cyclobenzaprine Hydrochloride 10 mg oral tablet 10 mg prescription: not prescribed this visit Care goals and future scheduled procedures: Pain severity - Reported Care goals and future scheduled procedures: Pain severity - Reported Care goals and future scheduled procedures: Pain severity - Reported Care goals and future scheduled procedures: Pain severity - Reported Care goals and future scheduled procedures: Pain severity - Reported Care goals and future scheduled procedures: Pain severity - Reported Care goals and future scheduled procedures: Pain severity - Reported Care goals and future scheduled procedures: Pain severity - Reported Care goals and future scheduled procedures: Pain severity - Reported Care goals and future scheduled procedures: Pain severity - Reported Care goals and future scheduled procedures: Pain severity - Reported Care goals and future scheduled procedures: Pain severity - Reported Care goals and future scheduled procedures: Pain severity Lara-Gomez FACES pain rating scale Care goals and future scheduled procedures: Pain severity Lara-Gomez FACES pain rating scale Care goals and future scheduled procedures: Transfer of care (procedure) Care goals and future scheduled procedures: Transfer of care (procedure) Care goals and future scheduled procedures: Transfer of care (procedure) Care goals and future scheduled procedures: Transfer of care (procedure) Care goals and future scheduled procedures: Transfer of care (procedure) Care goals and future scheduled procedures: Transfer of Care (procedure) Care goals and future scheduled procedures: Transfer of care (procedure) Care goals and future scheduled procedures: Transfer of Care (procedure) Care goals and future scheduled procedures: Transfer of care (procedure) Care goals and future scheduled procedures: Transfer of care (procedure) Care goals and future scheduled procedures: Transfer of care (procedure) Care goals and future scheduled procedures: Transfer of care (procedure) Care goals and future scheduled procedures: Transfer of care (procedure) Care goals and future scheduled procedures: Transfer of care (procedure) Care goals and future scheduled procedures: Transfer of care (procedure) Care goals and future scheduled procedures: Transfer of care (procedure) Care goals and future scheduled procedures: Transfer of care (procedure) Care goals and future scheduled procedures: Transfer of Care (procedure) Care goals and future scheduled procedures: Transfer of care (procedure) Care goals and future scheduled procedures: Transfer of Care (procedure) Care goals and future scheduled procedures: Transfer of care (procedure) Tests Pending: MR Lumbar spine WO contrast Expected results on: 2016-07-06 Tests Pending: MR Lumbar spine WO contrast Expected results on: 2016-10-09 Tests Pending: MR Thoracic spine WO contrast Expected results on: 2016-10-09 Encounters Encounter Diagnosis Location Date Backache [facility] 2019-06-05 Radiculopathy, lumbar region [facility] 2019-06-05 Backache [facility] 2019-02-26 Radiculopathy, lumbar region [facility] 2019-02-26 Skin sensation disturbance [facility] 2019-02-26 Not specified [facility] 2018-06-14 Not specified [facility] 2018-06-10 Backache [facility] 2018-04-17 Radiculopathy, lumbar region [facility] 2018-04-17 Skin sensation disturbance [facility] 2018-04-17 Backache [facility] 2017-10-17 Radiculopathy, lumbar region [facility] 2017-10-17 Skin sensation disturbance [facility] 2017-10-17 Not specified [facility] 2017-08-22 Radiculopathy, lumbar region [facility] 2017-04-25 Medicine [facility]ache [facility] 2017-01-17 Medicine Radiculopathy, lumbar region [facility] 2017-01-17 Medicine Not specified [facility] 2016-10-30 Medicine Backache [facility] 2016-10-05 Medicine Radiculopathy, lumbar region [facility] 2016-10-05 Medicine Skin sensation disturbance [facility] 2016-10-05 Medicine Not specified [facility] 2016-07-17 Medicine Not specified [facility] 2016-07-17 Medicine Radiculopathy, lumbar region [facility] 2016-07-06 Medicine Radiculopathy, lumbar region [facility] 2016-06-12 Medicine Radiculopathy, lumbar region [facility] 2016-02-10 Medicine Not specified [facility] 2016-01-24 Not specified [facility] 2015-12-01 Not specified [facility] 2015-11-29 Radiculopathy, lumbar region [facility] 2015-11-04 Not specified [facility] 2015-10-11 Not specified [facility] 2015-08-17 Not specified [facility] 2015-08-11 Radiculopathy, lumbar region [facility] 2015-08-04 Radiculopathy, lumbar region [facility] 2015-01-28 Not specified [facility] 2014-10-14 Radiculopathy, lumbar region [facility] 2014-07-09 Smoker [facility] 2014-07-09 Not specified [facility] 2014-05-11 Radiculopathy, lumbar region [facility] 2014-05-07 Radiculopathy, lumbar region [facility] 2014-02-03 Radiculopathy, lumbar region [facility] 2013-10-13 Not specified [facility] 2013-06-25 Radiculopathy, lumbar region [facility] 2013-06-17 Not specified [facility] 2013-06-12 Not specified [facility] 2013-03-20 Not specified [facility] 2012-10-02 Not specified [facility] 2012-06-20 Not specified [facility] 2012-03-20 Not specified [facility] 2011-11-23 Not specified [facility] 2011-11-16 Not specified [facility] 2011-10-23 Not specified [facility] 2011-08-08 Not specified [facility] 2011-08-03 Functional Status No information Mental status No information Immunizations No immunization history Medications Material RXnormCode GenericName ProductStrength StartDate StopDate SIG CeleBREX 200 mg RxNorm: celecoxib 200 mg 2011-06-02 2013-06-17 oral capsule [id number] Flexeril 10 mg RxNorm: cyclobenzaprine 10 mg 2012-04-03 2013-06-17 Take oral tablet [id number] 1/2 to 1 tab po tid prn muscle spasm. Lyrica 150 mg RxNorm: pregabalin 150 mg 2012-06-20 2016-08-29 Take 1 oral capsule [id number] po bid Cyclobenzaprine RxNorm: cyclobenzaprine 10 mg 2014-03-09 2018-04-22 Take 1 Hydrochloride [id number] po tid 10 mg oral prn. tablet Lyrica 150 MG RxNorm: Pregabalin 150 MG Not Not Take 1 Oral Capsule [id number] Indicated Indicated po tid Cyclobenzaprine RxNorm: Cyclobenzaprine 10 MG Not 2018-09-30 Take 1 HCl 10 MG Oral [id number] HCl Indicated po tid Tablet prn muscle spasm Cyclobenzaprine RxNorm: Cyclobenzaprine 10 MG Not Not Take 1 HCl 10 MG Oral [id number] HCl Indicated Indicated po tid Tablet prn muscle spasm Problem List Problem Description Problem StartDate Status Backache 2016-10-05 active Skin sensation disturbance 2016-10-05 active Radiculopathy, lumbar region 2015-01-28 active Smoker 2013-10-13 active Medical Equipment No Information Procedures Procedure Date Medication Reconciliation (procedure) Performed: 2019-06-05 Medication Allergy Review/Reconciliation Performed: 2019-06-05 Diagnosis and Problem List Review/Reconciliation Performed: 2019-06-05 Body mass index (BMI) [Ratio] Performed: 2019-06-05 Documentation of current medications (procedure) Performed: 2019-06-05 Medication Reconciliation (procedure) Performed: 2019-02-26 Medication Allergy Review/Reconciliation Performed: 2019-02-26 Diagnosis and Problem List Review/Reconciliation Performed: 2019-02-26 Calculated BMI above normal parameters and a Performed: 2019-02-26 follow-up plan was documented Documentation of current medications (procedure) Performed: 2019-02-26 Body mass index (BMI) [Ratio] Performed: 2018-04-17 Medication Reconciliation (procedure) Performed: 2018-04-17 Documentation of current medications (procedure) Performed: 2018-04-17 Body mass index (BMI) [Ratio] Performed: 2017-10-17 Medication Reconciliation (procedure) Performed: 2017-10-17 Documentation of current medications (procedure) Performed: 2017-10-17 Body mass index (BMI) [Ratio] Performed: 2017-04-25 Medication Reconciliation (procedure) Performed: 2017-04-25 Documentation of current medications (procedure) Performed: 2017-04-25 Body mass index (BMI) [Ratio] Performed: 2017-01-17 Medication Reconciliation (procedure) Performed: 2017-01-17 Documentation of current medications (procedure) Performed: 2017-01-17 Body mass index (BMI) [Ratio] Performed: 2016-10-05 Medication Reconciliation (procedure) Performed: 2016-10-05 Documentation of current medications (procedure) Performed: 2016-10-05 Body mass index (BMI) [Ratio] Performed: 2016-07-06 Medication Reconciliation (procedure) Performed: 2016-07-06 Documentation of current medications (procedure) Performed: 2016-07-06 Medication Reconciliation (procedure) Performed: 2016-06-12 Documentation of current medications (procedure) Performed: 2016-06-12 Body mass index (BMI) [Ratio] Performed: 2016-06-12 Medication Reconciliation (procedure) Performed: 2016-02-10 Documentation of current medications (procedure) Performed: 2016-02-10 Calculated BMI above normal parameters and a Performed: 2016-02-10 follow-up plan was documented Weight control education (procedure) Performed: 2016-02-10 Body mass index (BMI) [Ratio] Performed: 2015-11-04 Medication Reconciliation (procedure) Performed: 2015-11-04 Documentation of current medications (procedure) Performed: 2015-11-04 Body mass index (BMI) [Ratio] Performed: 2015-08-04 Medication Reconciliation (procedure) Performed: 2015-08-04 Documentation of current medications (procedure) Performed: 2015-08-04 Calculated BMI above normal parameters and a Performed: 2015-01-28 follow-up plan was documented Medication Reconciliation (procedure) Performed: 2015-01-28 Documentation of current medications (procedure) Performed: 2015-01-28 Medication Reconciliation (procedure) Performed: 2014-07-09 Documentation of current medications (procedure) Performed: 2014-07-09 Smoking cessation education (procedure) Performed: 2014-07-09 Calculated BMI above normal parameters and a Performed: 2014-07-09 follow-up plan was documented Medication Reconciliation (procedure) Performed: 2014-05-07 Documentation of current medications (procedure) Performed: 2014-05-07 Calculated BMI above normal parameters and a Performed: 2014-05-07 follow-up plan was documented Medication Reconciliation (procedure) Performed: 2014-02-03 Documentation of current medications (procedure) Performed: 2014-02-03 Medication Reconciliation (procedure) Performed: 2013-10-13 Documentation of current medications (procedure) Performed: 2013-10-13 Documentation of current medications (procedure) Performed: 2013-06-17 Reason for Referral To: DR. Núñez: content: November 16, 2011RE: Ari Benson.: 66.Outpatient f/u visit #[id number] COMPLAINT: Old right S1 radiculopathy and left L5-S1 radiculopathy.INTERIM HISTORY: This is a 41-year- old man that I initially saw on 12/01/04 and last on 08/03/11 who is S/P right L5- S1 laminotomy and disc excision for right S1 radiculopathy. His last MRI of the lumbar spine was 12/19/10 which showed an extruded disc at L5-S1 with narrowing of the right lateral recess, but no change compared to 01/05/09. Since our last visit he called me on 08/22/11 wanting to try to d/c Celebrex. He did that and has been ok. He has lost 7# by not drinking soda and eating less. Unfortunately he continues with pain limiting activities. He has to pace chores. He can do dishes 5-10min at a time before needing to take a 20-30min break. On 10/12/11 he "reinjured" himself. He was trying to help his mother move and got severe pain in his lower back that radiated through his abdomen, groin, and burning in his genitals, anus and urine. No bladder or bowel dysfunction. That lasted about a week and he was seen [place] [facility] No images were taken. Pain is 4-5/10 and still when he bends forwardthere is pain in the left groin. He also has pain in bilateral buttocks. No new numbness or weakness.MEDICATIONS: Reviewed with the patient, Lyrica 150 mg bid, Flexeril 10 mg tidALLERGIES: NKDA.No change in PMH, family history, or social history.ROS: See HPI.PE:.GENERAL: Well-developed, well-nourished.MENTAL STATUS: No acute distress. Alert and appropriate.NEURO:. Lower Extremity Motor: 5/5 bilaterally except 4/5 right plantar flexion with one leg heel rising. Sensation diminished at bilateral S1 test areas and L5 test areas. DTRs symmetric at the patella and absent right Achilles, 1+ left Achilles. No babinski. No clonus.MUSCULOSKELETAL:.STATION AND GAIT: Normal steady gait. Iliac crests equal standing.THORACIC/LUMBAR SPINE: Normal ROM, but tender at the lumbosacral junction as before and bilaterally in the paraspinals. No thoracic tenderness.BILATERAL LOWER EXTREMITIES: Normal appearance with full ROM. Positive right SLR. With ROM of his left quads there is some increasedtone.IMPRESSION: Old right S1 radiculopathy with past L5 involvement and left L5-S1 radiculopathy.I am concerned about the recent flare that he reherniated with cauda equina symptoms. The increasedtone in the left leg also has me worried about a higher lesion in the thoracic cord.PLAN: 1. Continue with the same medications.2. MR lumbar and thoracic spine. I will request the thoracic spine through his private insurance and the lumbar spine his WC insurance.3. He is to continue with a 10 lb lifting restriction and avoiding repetitive bending, twisting, and kneeling. 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 VESID will help us determine that and that would help his case with SS Disability.4. continue to try to lose weight.5. f/u 3 months and discuss MR results on phone. He continues at a permanent moderate level of disability.REQUEST AUTHORIZATION FOR MR LUMBAR SPINE.Rufina Winn MS, .cc: Dr. Loyd: DR. Núñez: content: SEE NOTESTo : DR. Núñez: content: see reportTo: DR. Núñez: content: Please see Dr. Winn's notesTo: DR. Núñez: [phone]: Please see Dr. Winn's notes.Referral to orthopedic surgeon ( procedure)To: JOSHUA Garrison: Content: Please see 's notes.To: DR. Núñez: content: Please see Dr. Winn's notes.To: DR. Núñez: content: Please see Dr. Winn's notes.To: DR Núñez: content: Please see Dr. Winn's Note.Referral to general practitioner (procedure)To: DR Núñez: [phone]: Please see Dr. Winn's noteReferral to general practitioner ( procedure)To: DR Núñez: content: Please see Dr. Winn's note.Referral to general practitioner (procedure)To: DR LOYOLAPhone: Content: Please see 's Note. Results Test Name Value Date Status Lab Name and Specimen Info Address 2016-10-27 [facility] [phone]) [address] [place] [address] ([phone]) ([phone]) [place] [address] 2016-10-27 [place] [address] [place] [address] [place] [address] [place] [address] 2016-10-27 [facility] [address] [address] Care 2016-10-[address] [address] Imaging - Main [place] 2016-10-27 [facility] Imaging - [address] [place] [address] [facility]gent 2016-10-[address] [address] CC:Rufina Winn MD; 2016-10-27 [facility] Jitendra Loyola MD [address] [place] [address] 2016-10-[address] [address] [ rep ct fax] 2016-10-[address] [address] [ rep ct [facility] st 2016-10-27 [facility] zip] [address] [place] [address] [ rep ct add1] 2016-10-[address] [address] Copy to: [ rep ct 2016-10-27 [facility] ivnm] [address] [place] [address] 2016-10-[address] [address] Transcribed Date/Time: 2016-10-27 [facility] 10/27/[address] [place] [address] Dictated Date/Time: 2016-10-27 [facility] 10/27/[address] [place] [address] Dictated By: Ramirez 2016-10-27 [facility] Nael Nye MD [address] [place] [address] 2016-10-[address] [facility] [address] [place] [address] <Electronically signed 2016-10-27 [facility] by Ramirez Nye [address] in OV> 10/27/16 0811 [place] [address] 2016-10-27 [facility] [place] [place] [address] 2016-10-27 [facility] [address] [place] [address] 2016-10-27 [facility] [address] [place] [address] 4. THERE IS NO 2016-10-27 [facility] SIGNIFICANT CENTRAL [address] [place] [address] 3. THERE IS MULTILEVEL 2016-10-27 [facility] NEURAL FORAMINAL [address] [place] [address] ABOVE. 2. DEGENERATIVE DISC 2016-10-27 [facility] DISEASE AND [address] [place] [address] 1. POSTSURGICAL 2016-10-27 [facility] CHANGE. [address] [place] [address] IMPRESSION: 2016-10-27 [facility] [address] [place] [address] 2016-10-27 [facility] [address] [place] [address] OTHER: None. 2016-10-27 [facility] [address] [place] [address] 2016-10-27 [facility] [address] [place] [address] SOFT TISSUES: The 2016-10-27 [facility] visualized soft tissues [address] [place] [address] unremarkable. 2016-10-27 [facility] [address] [place] [address] severe bilateral neural 2016-10-27 [facility] foraminal narrowing. [address] [place] [address] marginal osteophyte 2016-10-27 [facility] formation at the neural [address] [place] [address] There is moderate to descending nerve roots 2016-10-27 [facility] bilaterally. There is [address] [place] [address] hypertrophy. There is eccentric to the right 2016-10-27 [facility] with partial effacement [address] [place] [address] recess, abutting the L5-S1: There is 2016-10-27 [facility] postsurgical change to [address] [place] [address] Again noted is a disc bulge examination. 2016-10-27 [facility] [address] [place] [address] narrowing. This is no 2016-10-27 [facility] significant central [address] [place] [address] stable from the previous depth. There is 2016-10-27 [facility] bilateral facet [address] [place] [address] mild bilateral neural foraminal L4-L5: There is a 2016-10-27 [facility] broad-based disc bulge [address] [place] [address] protrusion measuring 0.3 cm in or neuroforaminal 2016-10-27 [facility] narrowing. [address] [place] [address] L3-L4: There is 2016-10-27 [facility] bilateral facet [address] hypertrophy. [place] [address] disc herniation, spinal stenosis, or neuroforaminal 2016-10-27 [facility] narrowing. [address] [place] [address] L2-L3: There is 2016-10-27 [facility] bilateral facet [address] hypertrophy[place] [address] disc herniation, spinal stenosis, 2016-10-27 [facility] [address] [place] [address] AXIAL IMAGES: 2016-10-27 [facility] [address] [place] [address] 2016-10-27 [facility] [address] [place] [address] throughout the spine. 2016-10-27 [facility] [address] [place] [address] INTERVERTEBRAL DISCS: 2016-10-27 [facility] There is diffuse loss of [address] [place] [address] height and T2 signal MUSCULATURE: There is 2016-10-27 [facility] mild fatty infiltration [address] [place] [address] JOINTS: There is facet 2016-10-27 [facility] osteoarthritis [address] [place] [address] body. 2016-10-27 [facility] [address] [place] [address] reactive end plate 2016-10-27 [facility] changes at L5-S1. There [address] [place] [address] of the S1 vertebral VERTEBRAL BODIES: There 2016-10-27 [facility] is anterolateral [address] [place] [address] formation with Modic type I ALIGNMENT: There is 2016-10-27 [facility] trace retrolisthesis of [address] [place]5 [place] [address] are normal in caliber, 2016-10-27 [facility] position, and signal [address] [place] [address] SPINAL CORD, CONUS, AND 2016-10-27 [facility] CAUDA EQUINA: The [address] visualized spinal cord, [place] [address] conus, and cauda equina 2016-10-27 [facility] [address] [place] [address] purposes of counting. 2016-10-27 [facility] [address] [place] [address] There is a transitional 2016-10-27 [facility] last lumbar type [address] [place] [address] will be labeled L5 for the FINDINGS: 2016-10-27 [facility] [address] [place] [address] 2016-10-27 [facility] [address] [place] [address] T1- and T2-weighted 2016-10-27 [facility] images, coronal [address] T2-weighted [place], [place] [address] sagittal STIR images. TECHNIQUE: The 2016-10-27 [facility] following sequences were [address] [place] [address] spine: Sagittal and axial 2016-10-[address] [address] COMPARISONS: 2016-10-27 [facility] 2017 [address] [place] [address] 2016-10-[address] [address] HISTORY: History of 2016-10-27 [facility] L5-S1 laminectomy 101 [place] [address] 2016-10-[address] [address] 2016-10-[address] [address] CPT: 41367 2016-10-[address] [address] Accession Number: 2016-10-27 [facility] [id number] [address] [place] [address] Order Information: 2016-10-27 [facility] MRI LUMBAR SPINE W/O [address] [place] [address] 2016-10-[address] [address] Exam Date: 10/27/16 2016-10-27 [facility] ADM 101 [facility] Status: [place] [address] : 1970 Age: 2016-10-27 [facility] 46 Sex: M 101 [facility] Location: [place] [address] Ordering Physician: 2016-10-27 [facility] Rufina Winn MD [facility] Acct.#: [place] [address] [id number] Patient Name: 2016-10-27 [facility] ARI BENSON [facility] [place] [address] Record#: [id number] ([phone]) 2016-10-27 [facility] ([phone]) [facility] [place] [address] ([phone]) [place] [address] 2016-10-27 [place] [address] [facility] [place] [address] [place] [address] [facility] Dates [facility] 2016-10-27 [facility] [address] [facility] [address] [address] Care 2016-10-[address] [place] [address] Imaging - Main [place] 2016-10-27 [facility] Imaging - [address] [place] [address] Imaging - [place] Urgent 2016-10-[address] [address] CC:Rufina Winn MD; 2016-10-27 [facility] Jitendra Loyola MD [address] [place] [address] 2016-10-27 [facility] [address] [place] [address] [ rep ct fax] 2016-10-27 [facility] [address] [place] [address] [ rep ct city st 2016-10-27 [facility] zip] [address] [place] [address] [ rep ct add1] 2016-10-[address] [address] Copy to: [ rep ct 2016-10-27 [facility] ivnm] [address] [place] [address] 2016-10-[address] [address] Transcribed Date/Time: 2016-10-27 [facility] [place] 10/27/[address] [place] [address] Dictated Date/Time: 2016-10-27 [facility] 10/27/[address] [place] [address] Dictated By: Ramirez 2016-10-27 [facility] Nael Nye MD [address] [place] [address] 2016-10-[address] [address] <Electronically signed 2016-10-27 [facility] by Ramirez Nye [address] [place] [address] in OV> 10/27/16 0805 [place] [address] 2016-10-27 [facility] [address] [place] [address] [place] [address] 2016-10-27 [facility] [address] [place] [address] 2016-10-[address] [place] [address] STENOSIS. 2016-10-27 [facility] [address] [place] [address] MILD DEGENERATIVE 2016-10-27 [facility] CHANGES. NO SIGNIFICANT [address] [place] [address] NARROWING OR CENTRAL CANAL IMPRESSION: 2016-10-27 [facility] [address] [place] [address] 2016-10-27 [facility] [address] [place] [address] OTHER: The patient is 2016-10-27 [facility] status post anterior [address] [place] [address] 2016-10-27 [facility] [address] [place] [address] SOFT TISSUES: The 2016-10-27 [facility] visualized soft tissues [address] [place] [address] abdomen are unremarkable. 2016-10-27 [facility] [address] [place] [address] AXIAL IMAGES: There is 2016-10-27 [facility] no central canal [address] [place] [address] neuroforaminal narrowing. 2016-10-27 [facility] [address] [place] [address] throughout the spine. 2016-10-27 [facility] [address] [place] [address] INTERVERTEBRAL DISCS: 2016-10-27 [facility] There is mild loss of [address] [place] [address] height and T2 signal MUSCULATURE: 2016-10-27 [facility] Unremarkable [address] [place] [address] JOINTS: There is mild 2016-10-27 [facility] osteoarthritis of the [address] [place] [address] articulations. osteophyte formation. 2016-10-27 [facility] [address] [place] [address] VERTEBRAL BODIES: There 2016-10-27 [facility] is a hemangioma at C5. [address] [place] [address] anterolateral marginal ALIGNMENT: The 2016-10-27 [facility] alignment is normal. [address] [place] [address] are normal in caliber, 2016-10-27 [facility] position, and signal [address] [place] [address] SPINAL CORD, CONUS, AND 2016-10-27 [facility] CAUDA EQUINA: The [address] visualized spinal cord, [place] [address] conus, and cauda equina 2016-10-[address] [address] Localization is based 2016-10-27 [facility] on counting from C2 [address] [place] [address] 2016-10-[address] [address] FINDINGS: 2016-10-[address] [address] 2016-10-[address] [address] T2-weighted images. . 2016-10-[address] [address] T2-weighted images, 2016-10-27 [facility] sagittal STIR images, [address] [place] [address] [place] [address] images, and axial TECHNIQUE: The 2016-10-27 [facility] following sequences were [address] [place] [address] [place] [address] spine: Sagittal T1 and 2016-10-[address] [address] COMPARISONS: November 2016-08-18 [facility] [address] [place] [address] 2016-10-[address] [address] HISTORY: Chronic mid and 2016-10-27 [facility] low back pain [address] [place] [address] 2016-10-[address] [address] 2016-10-[address] [address] CPT: 76824 2016-10-[address] [address] Accession Number: 2016-10-27 [facility] [id number] [address] [place] [id number] Order Information: 2016-10-27 [facility] MRI THORACIC SPINE W/O [address] [place] [address] 2016-10-[address] [address] Exam Date: 10/27/16 2016-10-27 [facility] ADM 101 [facility] Status: [place] [address] : 1970 Age: 2016-10-27 [facility] 46 Sex: M 101 [facility] Location: [place] [address] Ordering Physician: 2016-10-27 [facility] Rufina Winn MD 101 [facility] Acct.#: [place] [address] [id number] Patient Name: 2016-10-27 [facility] ARI BENSON [address] [place] [address] Record#: [id number] ([phone]) 2016-07-14 [facility] ph ([phone]) [facility] [place] [address] ([phone]) [place] [address] 2016-07-14 [place] [address] [place] [address] [place] [address] [facility] 2016-07-14 [facility] [address] [facility] [address] [address] Care 2016-07-[address] [address] Imaging - Main [place] 2016-07-14 [facility] Imaging - [place] [address] [facility] [place] [address] Imaging - [place] Urgent 2016-07-[address] [address] CC:Rufina Winn MD; 2016-07-14 [facility] Jitendra Loyola MD [address] [place] [address] 2016-07-[address] [address] [ rep ct fax] 2016-07-[address] [address] [ rep ct city st 2016-07-14 [facility] zip] [address] [place] [address] [ rep ct add1] 2016-07-[address] [address] Copy to: [ rep ct 2016-07-14 [facility] ivms] [address] [place] [address] 2016-07-[address] [address] Transcribed Date/Time: 2016-07-14 [facility] 07/14/162023 [address] [place] [address] Dictated Date/Time: 2016-07-14 [facility] 07/14/162027 [address] [place] [address] Dictated By: Ramirez 2016-07-14 [facility] [place] [address] 2016-07-[address] [place] [address] <Electronically signed 2016-07-14 [facility] by Ramirez Nye [address] in OV> 07/14/162027 [place] [address] 2016-07-14 [facility] [place] [place] [address] 2016-07-[address] [place] [address] 2016-07-[address] [place] [address] SIGNIFICANT CENTRAL 2016-07-14 [facility] [place] [address] 4. THERE IS MULTILEVEL 2016-07-14 [facility] NEURAL FORAMINAL [address] [place] [address] ABOVE. THERE IS NO NERVE ROOT BILATERALLY, 2016-07-14 [facility] SOMEWHAT GREATER ON THE Drive [place] [address] 3. THERE IS A DISC 2016-07-14 [facility] BULGE THAT IS ECCENTRIC Drive TO THE RIGHT AT L5-S1, [place] [address] ABUTTING THE DESCENDING EXAMINATION. 2016-07-[address] [facility] [address] [place] [address] 2. THERE IS A SMALL 2016-07-14 [facility] CENTRAL DISC PROTRUSION Drive AT L4-L5, [place] [address] THE PREVIOUS 1. DEGENERATIVE DISC 2016-07-14 [facility] DISEASE AND [address] [place] [address] IMPRESSION: 2016-07-[address] [facility] [address] [place] [address] 2016-07-[address] [place] [address] OTHER: None. 2016-07-14 [facility] [address] [place] [address] 2016-07-14 [facility] [address] [place] [address] SOFT TISSUES: The 2016-07-14 [facility] visualized soft tissues [address] [place] [address] unremarkable. 2016-07-14 [facility] [address] [place] [address] central canal stenosis. 2016-07-14 [facility] [address] [place] [address] hypertrophy. There is 2016-07-14 [facility] moderate right [address] [place] [address] narrowing. There is no significant marginal osteophyte 2016-07-14 [facility] formation at the neural [address] [place] [address] bilateral facet descending roots 2016-07-14 [facility] bilaterally, somewhat [address] [place] [address] than on the left. There is L5-S1: There is a 2016-07-14 [facility] broad-based disc bulge [address] [place] [address] right. This abuts the foraminal narrowing 2016-07-14 [facility] with partial effacement [address] [place] [address] osteophyte formation at 2016-07-14 [facility] the neural foramina [address] [place]. [place] [address] moderate left neural measuring 0.3 cm in 2016-07-14 [facility] depth. There is [address] [place] [place] [address] hypertrophy. There is marginal L4-L5: There is a 2016-07-14 [facility] broad-based disc bulge [address] [place] [address] central disc protrusion narrowing or central 2016-07-14 [facility] canal stenosis. [address] [place] [address] L3-L4: There is 2016-07-14 [facility] bilateral facet [address] hypertrophy[place] [address] significant neural foraminal 2016-07-14 [facility] [address] [place] [address] AXIAL IMAGES: 2016-07-14 [facility] [address] [place] [address] 2016-07-14 [facility] [address] [place] [address] INTERVERTEBRAL DISCS: 2016-07-14 [facility] There is loss of [address] [place] [address] height and T2 signal at L5-S1 MUSCULATURE: There is 2016-07-14 [facility] mild fatty infiltration [address] [place] [address] JOINTS: There is facet 2016-07-14 [facility] hypertrophy change along [address] [place] [address] laminectomy defect is 2016-07-14 [facility] noted on the right at [address] [place] L5-[place] [address] reactive endplate 2016-07-14 [facility] changes at L5-S1. This [address] [place] [address] previous examination. A VERTEBRAL BODIES: There 2016-07-14 [facility] is anterolateral [address] [place] [address] formation with Modic type I ALIGNMENT: The 2016-07-14 [facility] alignment is normal. [address] [place] [address] are normal in caliber, 2016-07-14 [facility] position, and signal [address] [place] [address] SPINAL CORD, CONUS, AND 2016-07-14 [facility] CAUDA EQUINA: The [address] visualized spinal cord, [place] [address] conus, and cauda equina 2016-07-14 [facility] [address] [place] [address] purposes of counting. 2016-07-14 [facility] [address] [place] [address] There is a transitional 2016-07-14 [facility] last lumbar type [address] [place] [address] will be labeled S1 for the FINDINGS: 2016-07-14 [facility] [address] [place] [address] 2016-07-14 [facility] [address] [place] [address] T1- and T2-weighted 2016-07-14 [facility] images, coronal [address] T2-weighted [place], [place] [address] sagittal STIR images. TECHNIQUE: The 2016-07-14 [facility] following sequences were [address] [place] [address] spine: Sagittal and axial 2016-07-14 [place] [address] [place] [address] COMPARISONS: November 2016-05-05 [facility] 2015 [address] [place] [address] 2016-07-[address] [address] HISTORY: Chronic low 2016-07-14 [facility] back pain, left leg pain [address] [place] [address] 2016-07-[address] [address] 2016-07-[address] [address] CPT: [id number] 2016-07-[address] [address] Accession Number: 2016-07-14 [facility] [id number] [address] [place] [id number] Order Information: 2016-07-14 [facility] MRI LUMBAR SPINE W/O [facility] [place] [address] 2016-07-[address] [address] Exam Date: 07/14/16 2016-07-14 [facility] ADM 101 [facility] Status: [place] [address] : 1970 Age: 2016-07-14 [facility] 46 Sex: M 101 [facility] Location: [place] [address] Ordering Physician: 2016-07-14 [facility] Rufina Winn MD [facility] Acct.#: [place] [address] [id number] Patient Name: 2016-07-14 [facility] ARI BENSON [facility] [place] [place] [address] Record#: [id number] ([phone]) 2015-12-01 [facility] ([phone]) [facility] [place] [place] [address] ([phone]) [place] [address] 2015-12-01 [place] [address] [facility] [place] [place] [address] [place] [address] [facility] 2015-12-01 [facility] [address] [facility] [address] [address] Care 2015-12-01 [place] [address] [place] [address] Imaging - [place] 2015-12-01 [facility] Imaging - [address] [place] [address] Imaging - [place] Urgent 2015-12-[address] [address] CC:Rufina Winn MD; 2015-12-01 [facility] Jitendra Loyola MD [address] [place] [address] 2015-12-01 [facility] [facility] [address] [place] [phone] [ rep ct fax] 2015-12-[address] [address] [ rep ct [facility] 2015-12-01 [facility] zip] [address] [place] [phone] [ rep ct add1] 2015-12-[address] [address] Copy to: [ rep ct 2015-12-01 [facility] ivnm] [address] [place] [id number] 2015-12-[address] [address] Transcribed Date/Time: 2015-12-01 [facility] 12/01/[address] [place] [id number] Dictated Date/Time: 2015-12-01 [facility] 12/01/[address] [place] [id number] Dictated By: Ramirez 2015-12-01 [facility] Nael Nye MD [address] [place] [phone] [address] <Electronically signed 2015-12-01 [facility] by Ramirez Nye [address] [place] [address] in OV> 12/01/15 0746 [place] [address] 2015-12-01 [facility] [address] [place] [address] [place] [address] 2015-12-[address] [address] 2015-12-01 [address] [place] [address] CENTRAL CANAL STENOSIS. 2015-12-[address] [facility] [address] [place] [address] 4. THERE IS NEURAL 2015-12-[address] [facility] [address]AL NARROWING Drive [place] [address] IS NO SIGNIFICANT RETRACTED SOMEWHAT 2015-12-01 [facility] COMPARED TO THE [address] [place] [address] 3. THERE IS DISC BULGE 2015-12-01 [facility] AT L5-S1 ABUTTING THE Drive [place] [address] BILATERALLY. THIS HAS 2. DEGENERATIVE DISC 2015-12-01 [facility] DISEASE AND [place] [address] 1. POSTSURGICAL 2015-12-01 [facility] CHANGE. [address] [place] [address] IMPRESSION: 2015-12-[address] [facility] [address] [place] [address] 2015-12-[address] [facility] [address] [place] [address] OTHER: None. 2015-12-[address] [facility] [address] [place] [address] 2015-12-[address] [facility] [address] [place] [address] SOFT TISSUES: The 2015-12-01 [facility] visualized soft tissues [place] [address] unremarkable. 2015-12-[address] [facility] [address] [place] [address] narrowing. 2015-12-[address] [facility] [address] [place] [address] formation at the neural 2015-12-[address] [facility] [address] bilaterally. Drive [place] [address] neural foraminal disc bulge is somewhat 2015-12-01 [facility] retracted compared to [place]. [place] [address] is marginal osteophyte descending nerve roots 2015-12-01 [facility] bilaterally. The patient Drive [place] [address] hemilaminectomy. The osteophyte formation at 2015-12-01 [facility] the neural foramina [address] [place] [address] bulge abuts the L5-S1: There is 2015-12-01 [facility] broad-based bulge with [address] [place] [place] [address] hypertrophy. There is marginal significant central 2015-12-01 [facility] canal stenosis. There is [address] [place] [address] foraminal narrowing. measuring 0.3 cm in 2015-12-01 [facility] depth. This is similar [address] [place] [address] examination. There is no L4-L5: There is 2015-12-01 [facility] bilateral facet [address] [place] [address] small central disc protrusion or neuroforaminal 2015-12-01 [facility] narrowing. [address] [place] [address] L3-L4: There is 2015-12-01 [facility] bilateral facet [address] hypertrophy. [place] [address] disc herniation, spinal stenosis, 2015-12-[address] [facility] [address] [place] [address] T12-L1: There is no 2015-12-01 [facility] disc herniation, spinal [address] stenosis, [place] [address] neuroforaminal narrowing. AXIAL IMAGES: 2015-12-[address] [facility] [address] [place] [address] 2015-12-[address] [facility] [address] [place] [address] pronounced at L5-S1 2015-12-[address] [facility] [address] [place] [address] INTERVERTEBRAL DISCS: 2015-12-01 [facility] There is loss of [address] [place] [address] height and T2 signal most JOINTS: There is 2015-12-01 [facility] diffuse facet [address] [place] [address] type I and type II 2015-12-01 [facility] reactive endplate [address] changes [place]5-[place] [address] VERTEBRAL BODIES: There 2015-12-01 [facility] is partial lumbarization [address] [place] [address] body. There are Modic ALIGNMENT: There is 2015-12-01 [facility] trace retrolisthesis of [address] [place]5 [place] [address] are normal in caliber, 2015-12-01 [facility] position, and signal [address] [place] [address] SPINAL CORD, CONUS, AND 2015-12-01 [facility] CAUDA EQUINA: The [address] visualized spinal cord, [place] [address] conus, and cauda equina 2015-12-[address] [facility] [address] [place] [address] for the purposes of 2015-12-01 [facility] consistency with [address] [place] [address] FINDINGS: There is 2015-12-01 [facility] transitional last lumbar [address] [place] [address] which will be labeled S1 2015-12-[address] [facility] [address] [place] [address] T1- and T2-weighted 2015-12-01 [facility] images, coronal [address] T2-weighted [place], [place] [address] sagittal STIR images. TECHNIQUE: The 2015-12-01 [facility] following sequences were [address] [place] [address] spine: Sagittal and axial 2015-12-[address] [facility] [address] [place] [address] COMPARISONS: 2015-12-01 [facility] [address] [place] [address] 2015-12-[address] [facility] [address] [place] [address] HISTORY: Status post 2015-12-01 [facility] L5-S1], and across back [address] [place] [address] 2015-12-[address] [facility] [address] [place] [address] 2015-12-[address] [facility] [address] [place] [address] CPT: 47981 2015-12-[address] [facility] [address] [place] [address] Accession Number: 2015-12-01 [facility] [id number] [address] [place] [address] Order Information: 2015-12-01 [facility] MRI LUMBAR SPINE W/[place] [address] [place] [address] 2015-12-01 [facility] [address] [place] [address] Exam Date: 11/30/15 2015-12-01 [facility] ADM [address] Status: [place] [address] : 1970 Age: 2015-12-01 [facility] 45 Sex: M [address] Location: [place] [address] Ordering Physician: 2015-12-01 [facility] Rufina Winn MD [address] Acct.#: [place] [address] [id number] Patient Name: 2015-12-01 [facility] ARI BENSON [address] [place] [id number] Record#: [id number] Social History Social History Effective Date Current some day smoker 2016-06-12 Sex: M 1970 Vital Signs Vital Name Measurement Date Value Pain 2019-06-05 5 Height 2019-02-26 177.8 cm Pain 2019-02-26 5 Weight 2019-02-26 83.46 kg BMI (Body Mass Index) 2019-02-26 26.4 kg/m2 Height 2018-04-17 177.8 cm Pain 2018-04-17 6 Weight 2018-04-17 77.56 kg BMI (Body Mass Index) 2018-04-17 24.54 kg/m2 Height 2017-10-17 177.8 cm Pain 2017-10-17 6 Weight 2017-10-17 78.47 kg BMI (Body Mass Index) 2017-10-17 24.82 kg/m2 Height 2017-04-25 177.8 cm Weight 2017-04-25 74.84 kg BMI (Body Mass Index) 2017-04-25 23.67 kg/m2 Height 2017-01-17 177.8 cm Pain 2017-01-17 6 Weight 2017-01-17 71.67 kg BMI (Body Mass Index) 2017-01-17 22.67 kg/m2 Height 2016-10-05 172.72 cm Pain 2016-10-05 8 Weight 2016-10-05 68.95 kg BMI (Body Mass Index) 2016-10-05 23.11 kg/m2 Height 2016-07-06 175.26 cm Pain 2016-07-06 6 Weight 2016-07-06 75.75 kg BMI (Body Mass Index) 2016-07-06 24.66 kg/m2 Height 2016-06-12 177.8 cm Pain 2016-06-12 6 Weight 2016-06-12 75.75 kg BMI (Body Mass Index) 2016-06-12 23.96 kg/m2 Height 2016-02-10 176.53 cm Pain 2016-02-10 7 Weight 2016-02-10 81.19 kg BMI (Body Mass Index) 2016-02-10 26.05 kg/m2 Height 2015-11-04 176.53 cm Pain 2015-11-04 6 Weight 2015-11-04 80.29 kg BMI (Body Mass Index) 2015-11-04 25.76 kg/m2 Height 2015-08-04 177.8 cm Pain 2015-08-04 7 Weight 2015-08-04 80.29 kg BMI (Body Mass Index) 2015-08-04 25.4 kg/m2 Height 2015-01-28 177.8 cm Pain 2015-01-28 6 Weight 2015-01-28 81.19 kg BMI (Body Mass Index) 2015-01-28 25.68 kg/m2 Height 2014-07-08 176.53 cm Pain 2014-07-08 6 {score} Weight 2014-07-08 84.82 kg BMI (Body Mass Index) 2014-07-08 27.22 kg/m2 Height 2014-05-06 179.7 cm Pain 2014-05-06 7 {score} Weight 2014-05-06 84.82 kg BMI (Body Mass Index) 2014-05-06 26.27 kg/m2 Height 2014-02-02 195.58 cm Pain 2014-02-02 6 {score} Weight 2014-02-02 87.09 kg BMI (Body Mass Index) 2014-02-02 22.77 kg/m2 Height 2013-10-12 173.99 cm Pain 2013-10-12 6 {score} Weight 2013-10-12 85.73 kg BMI (Body Mass Index) 2013-10-12 28.32 kg/m2 Pain 2013-06-16 {score} Goals No goals are recorded Health Concerns No Information
--- OUTSIDE RECORDS SUMMARY | 2019-06-20 11:57 | XMS REPORT | Continuity of Care Document ---
:1970 External Reference #:[id number] Author Name Vlad Donaldson M.D. (transmitted by agent of provider Mendy Sanchez) Address [address] [place] [address] Care Team Providers Name Role Phone Jitendra Loyola MD Care Team Information [employer] [phone] Problems Active Problems Provider Date Presbyopia Alicia Loco O.D. Onset: 03/23/2014 Regular astigmatism Alicia Loco O.D. Onset: 03/23/2014 Myopia Alicia Loco O.D. 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 Social History Type Date Description Comments Sex Unknown ETOH Use Denies alcohol use Tobacco Use Start: Unknown Patient is a current smoker, smokes every day Smoking Status Reviewed: 01/23/19 Patient is a current smoker, smokes every day Allergies, Adverse Reactions, Alerts Description No Known Drug Allergies Medications Active Medications SIG Qnty Indications Ordering Provider Date Gabapentin Lyrica Unknown Capsules Simvastatin Unknown Tablets Immunizations Description No Information Available Vital Signs Date Vital Result Comment 01/23/2019 3:08pm Intraocular Pressure Right Eye 19 mmHg Intraocular Pressure Left Eye 19 mmHg 07/30/2017 9:31am Intraocular Pressure Right Eye 19 mmHg Intraocular Pressure Left Eye 19 mmHg Results Description No Information Available Procedures Date Code Description Status 01/23/2019 57573 Eye Exam Est Intermediate Completed Medical Devices Description No Information Available Encounters Description No Information Available Assessments Date Code Description Provider 01/23/2019 H01.025 Squamous blepharitis left lower eyelid Vlad Donaldson M.D. 01/23/2019 H01.022 Squamous blepharitis right lower eyelid Vlad Donaldson M.D. 01/23/2019 H52.4 Presbyopia Vlad Donaldson M.D. Plan of Treatment 01/23/2019 - Vlad Donaldson M.D.H01.025 Squamous blepharitis left lower cfkvnwU92.022 Squamous blepharitis right lower [id number] PresbyopiaFollow up: 1 yr Functional Status Description No Information Available Mental Status Description No Information Available Referrals Description No Information Available
[2019-06-20] MEDS ORDERED: Iohexol 300* (CONTRAST) 10 ML SDV IV ONE (12:21)
[2019-06-20 12:33] LABS: HIV 4th Generation Nonreactive (Nonreactive)
[2019-06-20 14:58] VITALS: BP 115/81
== END 2019-06-20 14:57 | disposition home or self-care (01) ==
LOC: ED 11:05
DX: K62.5 Hemorrhage of anus and rectum (principal); R10.9 Unspecified abdominal pain; M79.7 Fibromyalgia; F17.210 Nicotine dependence, cigarettes, uncomplicated; Z79.899 Other long term (current) drug therapy
CPT/HCPCS: 36415; 74177; 80053; 85025; 87389; 99283; Q9967